=== PATIENT | female | born 1945 | race Two or more races ===

== ENCOUNTER 2024-12-06 09:34 | Outpatient (CLI) | payer OTHER | END 2024-12-06 09:35 | disposition home or self-care (01) | LOC: NUCLEAR 09:34 | PROVIDERS: ATTEND Internal Medicine | DX: M81.0 Age-related osteoporosis without current pathological fracture (principal) ==

== ENCOUNTER 2025-01-02 12:01 | Outpatient (CLI) | payer OTHER | END 2025-01-02 12:13 | disposition home or self-care (01) | LOC: MAMO-SONO 12:01 | PROVIDERS: ATTEND Internal Medicine | DX: N60.09 Solitary cyst of unspecified breast (principal); Z12.31 Encounter for screening mammogram for malignant neoplasm of breast ==